=== PATIENT | female | born 1960 | race Asian ===

== ENCOUNTER 2018-09-28 06:18 | Day surgery (SDC) | payer OTHER ==
[2018-09-28] MEDS ORDERED: MIDAZOLAM 1 MG/ML 2 ML INJ ×2 (08:55)
[2018-09-28] MEDS ORDERED: FENTAnyl 50 MCG/ML VIAL (08:55)
== END 2018-09-28 13:55 | disposition home or self-care (01) ==
LOC: GIL 06:18
DX: D12.5 Benign neoplasm of sigmoid colon (principal); K64.8 Other hemorrhoids
CPT/HCPCS: 45380; 88305